=== PATIENT | male | born 1935 | race Caucasian/White ===

== ENCOUNTER → 2022-12-12 | Emergency (ER) | payer MEDICARE ==
[~2022-12-12] VITALS: Ht 180.3 cm; Wt 84.8 kg
[~2022-12-12] MED LIST: ARICEPT10 MG PO; ATORVASTATIN CA80 MG PO; FUROSEMIDE20 MG PO; LISINOPRIL10 MG PO; METOPROLOL SUCC25 MG PO; POTASSIUM CHLO10 MEQ PO
--- NOTE | ~2022-12-12 | EKG ---
[facility] [address] [facility] [place], [place] [address] Draft EK completed, results pending confirmation PATIENT NAME: LI MORALES Electrocardiogram DATE OF : [birth year] PHYSICIAN: PRELIMINARY REPORT #: [id number] REPORT IS CONFIDENTIAL AND NOT TO BE RELEASED WITHOUT AUTHORIZATION
[2022-12-13 03:36] VITALS: BP 148/92
--- NOTE | 2022-12-14 16:42 | EKG ---
[facility] [address] [facility] [place] [address] Signed Atrial fibrillation Left axis deviation Nonspecific T wave abnormality Abnormal ECG No previous ECGs available Confirmed by ESTELLE BONNER MD ([id number]) on 12/14/2022 4:42:36 PM Electronically Signed By: ESTELLE BONNER MD 12/14/221641 PATIENT NAME: LI MORALES Electrocardiogram DATE OF : [birth year] PHYSICIAN: ESTELLE BONNER MD REPORT #: [id number] REPORT IS CONFIDENTIAL AND NOT TO BE RELEASED WITHOUT AUTHORIZATION
== END ==
LOC: ED 19:32
DX: I50.9 Heart failure, unspecified (principal); I71.40 Abdominal aortic aneurysm, without rupture, unspecified; R53.83 Other fatigue; Z88.0 Allergy status to penicillin; Z79.899 Other long term (current) drug therapy
CPT/HCPCS: 36415; 71046; 71260; 74177; 80053; 81001; 83880; 84484; 85025; 85379; 93005; 93010; Q9967

== ENCOUNTER 2023-05-04 13:14 | Emergency (ER) | payer MEDICARE ==
[~2023-05-04] VITALS: Ht 180.3 cm; Wt 83.0 kg
[2023-05-04] MEDS ORDERED: CLOPIDOGREL75 MG PO (13:28)
[2023-05-04 13:53] LABS: HEMOGLOBIN 12.9 g/dL (12.0-18.0)
[2023-05-04 13:56] LABS: BASOPHILS 0.5 % (0-2); EOSINOPHILS 0.4 % (0-6); HEMATOCRIT 39.7 % (35.0-50.0); LYMPHOCYTES 11.5 % (24-44); MCH 33.4 (27-36); MCHC 32.4 g/dl (30-36); MCV 103.3 fl (81-99); MONOCYTES 7.9 % (0-12); NEUTROPHILS 79.7 % (39-80); PLATELET COUNT 230 K/uL (140-440); RBC 3.85 M/ul (4.3-5.7); RDW 15.8 (10.5-15.0)
[2023-05-04 14:08] LABS: ALBUMIN 2.9 g/dL (3.4-5.0); ALBUMIN/GLOBULIN RATIO 0.62 (1.1-2.4); BILIRUBIN, TOTAL 1.1 ng/dL (0.2-1.0); BUN/CREATININE RATIO 18.33 (6.0-28.6); CALCIUM 8.9 mg/dL (8.5-10.1); CREATININE, SERUM 1.2 mg/dL (0.70-1.30); PROTEIN, TOTAL 7.6 g/dL (6.4-8.2)
[2023-05-04 18:14] VITALS: BP 168/102
--- NOTE | 2023-05-04 21:21 | EKG ---
[facility] [address] [facility] [place] [address] Signed Atrial fibrillation with slow ventricular response with premature ventricular or aberrantly conducted complexes Left axis deviation Incomplete left bundle branch block Nonspecific ST and T wave abnormality Abnormal ECG When compared with ECG of 12-DEC-2022 20:34, Nonspecific T wave abnormality now evident in Anterior leads Confirmed by Dana Taylor MD () on 05/04/2023 9:20:59 PM Electronically Signed By: DANA TAYLOR MD 05/04/232120 PATIENT NAME: LI MORALES CECILIA Electrocardiogram DATE OF : [birth year] PHYSICIAN: DANA TAYLOR MD REPORT #: [id number] REPORT IS CONFIDENTIAL AND NOT TO BE RELEASED WITHOUT AUTHORIZATION
== END 2023-05-04 18:14 | disposition home or self-care (01) ==
LOC: ED 13:14
PROVIDERS: Emergency Medicine
DX: I50.9 Heart failure, unspecified (principal); J44.9 Chronic obstructive pulmonary disease, unspecified; Z88.8 Allergy status to other drugs, medicaments and biological substances; Z79.899 Other long term (current) drug therapy
CPT/HCPCS: 36415; 71045; 80053; 83735; 83880; 84484; 85025; 93005; 93010; 96374; 99285-25; J1940

== ENCOUNTER 2023-09-09 10:21 | Emergency (ER) | payer MEDICARE ==
[~2023-09-09] VITALS: Ht 180.3 cm; Wt 82.1 kg
--- NOTE | ~2023-09-09 | EKG ---
[facility] [address] [facility] [place], [place] [address] Draft EK completed, results pending confirmation PATIENT NAME: CARMENLI RAY Electrocardiogram DATE OF : [birth year] PHYSICIAN: PRELIMINARY REPORT #: [id number] REPORT IS CONFIDENTIAL AND NOT TO BE RELEASED WITHOUT AUTHORIZATION
[~2023-09-09 10:21] MED LIST changes: +CLOPIDOGREL75 MG PO
[2023-09-09 10:43] LABS: BASOPHILS 0.7 % (0-2); EOSINOPHILS 0.6 % (0-6); HEMATOCRIT 40.8 % (35.0-50.0); HEMOGLOBIN 13.3 g/dL (12.0-18.0); LYMPHOCYTES 10.7 % (24-44); MCH 34.1 (27-36); MCHC 32.7 g/dl (30-36); MCV 104.2 fl (81-99); MONOCYTES 8.3 % (0-12); NEUTROPHILS 79.7 % (39-80); PLATELET COUNT 162 K/uL (140-440); RBC 3.91 M/ul (4.3-5.7); RDW 17.2 (10.5-15.0)
[2023-09-09 11:10] LABS: ALBUMIN 2.9 g/dL (3.4-5.0); ALBUMIN/GLOBULIN RATIO 0.59 (1.1-2.4); ANION GAP 11.8 (7-21); BUN/CREATININE RATIO 17.16 (6.0-28.6); CALCIUM 8.6 mg/dL (8.5-10.1); CREATININE, SERUM 1.34 mg/dL (0.70-1.30); MAGNESIUM 2.1 mg/dL (1.8-2.4); POTASSIUM 3.8 mmol/L (3.5-5.1); PROTEIN, TOTAL 7.8 g/dL (6.4-8.2)
[2023-09-09 15:43] VITALS: BP 131/98
== END 2023-09-09 15:44 | disposition home or self-care (01) ==
LOC: ED 10:21
PROVIDERS: Emergency Medicine
DX: I49.5 Sick sinus syndrome (principal); I50.9 Heart failure, unspecified; I08.0 Rheumatic disorders of both mitral and aortic valves; J90 Pleural effusion, not elsewhere classified; I48.20 Chronic atrial fibrillation, unspecified; Z79.02 Long term (current) use of antithrombotics/antiplatelets; Z79.899 Other long term (current) drug therapy; Z88.8 Allergy status to other drugs, medicaments and biological substances
CPT/HCPCS: 36415; 71045; 80053; 83735; 83880; 84484; 85025; 93005; 93010; 96374; 99285-25; J1940